=== PATIENT | female | born 1975 | race Caucasian/White ===

== ENCOUNTER 2017-02-05 17:50 | Emergency (ER) | payer OTHER ==
[2017-02-05 18:26] VITALS: BP 127/95
[2017-02-05] MEDS ORDERED: GI Cocktail Oral Solution 30 ML PO ONE (18:26)
--- NOTE | 2017-02-05 18:34 | EDM.PDOC ---
ED HPI GENERAL MEDICAL PROBLEM - General Chief Complaint: General Stated Complaint: CHEST PAIN Time Seen by Provider: 02/05/17 18:20 Source of Information: Reports: Patient, RN, Significant Other History Limitations: Reports: No Limitations - History of Present Illness INITIAL COMMENTS - FREE TEXT/NARRATIVE: 41 yr female presents with sudden midsternal chest pain after taking her Zoloft. States she didn't take it with water, states she tried to just swallow it. States she usually takes it in the am. States pain is relieved after being in hospital and having GI cocktail. States symptoms started around 530pm after her shower. States she had about 3 beers today from 1pm to 4pm and then took her medicine. States she has never had this pain before and noted severe flushing. States hx of hiatal hernia when child and has had her gallbladder removed. Onset: Today Onset Date: 02/05/17 Onset Time: 17:00 Location: Reports: Chest Severity: Severe Associated Symptoms: Reports: Chest Pain CHEST PAIN Pain Score (Numeric/FACES): 9 - Related Data Allergies Allergy/AdvReac Type Severity Reaction Status Date / Time No Known Allergies Allergy Verified 02/05/17 18:20 Home Meds: Home Meds Sertraline [Zoloft] 50 mg PO DAILY 02/05/17 [History] ED ROS GENERAL - Review of Systems Review Of Systems: See Below Constitutional: Reports: No Symptoms HEENT: Reports: No Symptoms Respiratory: Reports: No Symptoms Cardiovascular: Reports: Chest Pain, Lightheadedness Endocrine: Reports: No Symptoms GI/Abdominal: Reports: Decreased Appetite Neurological: Reports: Weakness, Other (light headed) ED EXAM, GENERAL - Physical Exam Exam: See Below Exam Limited By: No Limitations General Appearance: Alert, WD/WN Nose: Normal Inspection Head: Atraumatic, Normocephalic Neck: Normal Inspection, Supple Respiratory/Chest: No Respiratory Distress, Lungs Clear, Normal Breath Sounds Cardiovascular: Regular Rate, Rhythm, No Edema GI/Abdominal: Soft, Non-Tender Extremities: Normal Range of Motion Neurological: Alert, Oriented Psychiatric: Normal Affect, Normal Mood Skin Exam: Warm, Dry, Normal Color EKG INTERPRETATION EKG Date: 02/05/17 Rhythm: NSR P-Wave: Present QRS: Normal ST-T: Normal Comparison: NA - No Prior EKG Course - Vital Signs Last Recorded V/S: Last Vital Signs Temp 99.4 F 02/05/17 18:16 Pulse 76 02/05/17 18:25 Resp 24 H 02/05/17 18:16 BP 127/95 H 02/05/17 18:25 Pulse Ox 100 02/05/17 18:25 - Orders/Labs/Meds Orders: Active Orders 24 hr Category Date Time Status Cardiac Monitoring [RC] .As Directed Care 02/05/17 18:26 Active EKG Documentation Completion [RC] ASDIRECTED Care 02/05/17 18:33 Active EKG 12 Lead [EK] Routine Ther 02/05/17 18:32 Ordered Labs: Laboratory Tests 02/05/17 02/05/17 Range/Units 18:40 18:40 WBC 10.7 (4.0-11.0) K/uL RBC 4.57 (3.80-5.80) M/uL Hgb 14.1 (11.5-16.5) g/dL Hct 40.7 (37.0-47.0) % MCV 89 (76-96) fL MCH 30.9 (27.0-32.0) pg MCHC 34.6 (31.0-35.0) g/dL RDW 12.3 (11.0-16.0) % Plt Count 336 (150-500) K/uL MPV 9.2 (6.0-10.0) fL Neut % (Auto) 66.6 (45.0-70.0) % Lymph % (Auto) 23.0 (20.0-40.0) % [place] % (Auto) 7.9 (3.0-10.0) % Eos % (Auto) 2.0 (1.0-5.0) % Baso % (Auto) 0.5 (0.0-0.5) % Neut # (Auto) 7.15 (2.00-7.50) K/uL Lymph # (Auto) 2.47 (1.50-4.00) K/uL [place] # (Auto) 0.85 H (0.20-0.80) K/uL Eos # (Auto) 0.22 (0.04-0.40) K/uL Baso # (Auto) 0.05 (0.02-0.10) K/uL Sodium 143 (136-145) mmol/L Potassium 3.2 L (3.5-5.1) mmol/L Chloride 102 (98-107) mmol/L Carbon Dioxide 32.4 H (21.0-32.0) mmol/L Anion Gap 11.8 (5.0-15.0) mmol/L BUN 15 (8-26) mg/dL Creatinine 0.93 (0.55-1.02) mg/dL Est Cr Clr Drug Dosing 67.18 mL/min Estimated GFR (MDRD) > 60 (>60) MLS/MIN BUN/Creatinine Ratio 16.1 (6-25) Glucose 95 (74-100) mg/dL Calcium 9.0 (8.5-10.1) mg/dL Troponin I 0.055 (0.000-0.060) ng/mL Meds: Medications Discontinued Medications Generic Name Dose Route Start Last Admin Trade Name Freq PRN Reason Stop Dose Admin Al Hydroxide/Mg Hydroxide 30 ml 02/05/17 18:26 02/05/17 18:20 Gi Cocktail PO 02/05/17 18:27 30 ml ONETIME ONE Administration - Re-Assessments/Exams Free Text/Narrative Re-Assessment/Exam: 02/05/17 18:44 Pt states she feels better and wants to leave without the lab draw. States they have a dinner with many friends at [employer] now and arranged this and they are missing it. Discussed symptoms and possible heart involvement with this. Pt agreed to have lab work. Lab here to draw blood. Free Text/Narrative Re-Assessment/Exam: 02/05/17 19:33 Reviewed lab results. Troponin is negative. potassium in slightly low, no anemia and no leukocytosis. Departure - Departure Time of Disposition: 19:35 Disposition: Home, Self-Care 01 Condition: Good Clinical Impression: Gastrointestinal distress - Discharge Information Forms: ED Department Discharge Additional Instructions: F/U with PCP in 1 week when home. May use Mylanta, tums or prilosec if GI distress occurs. Return to ER if symptoms worsen of chest pain or shortness of breath. - My Orders Last 24 Hours: My Active Orders 02/05/17 18:26 Cardiac Monitoring [RC] .As Directed 02/05/17 18:32 EKG 12 Lead [EK] Routine 02/05/17 18:33 EKG Documentation Completion [RC] ASDIRECTED - Assessment/Plan Last 24 Hours: My Active Orders 02/05/17 18:26 Cardiac Monitoring [RC] .As Directed 02/05/17 18:32 EKG 12 Lead [EK] Routine 02/05/17 18:33 EKG Documentation Completion [RC] ASDIRECTED
== END 2017-02-05 19:35 | disposition home or self-care (01) ==
LOC: LB.ED 17:50
DX: K30 Functional dyspepsia (principal); Z79.899 Other long term (current) drug therapy
CPT/HCPCS: 36415; 80048; 84484; 85025; 93005; 99285; A9270